=== PATIENT | female | born 1940 | race Caucasian/White ===

== ENCOUNTER 2016-07-04 04:15 | Emergency (ER) | payer MEDICARE, OTHER ==
[~2016-07-04] VITALS: Ht 154.9 cm; Wt 60.9 kg
[2016-07-04 04:20] VITALS: BP 171/72; TEMP 98.1
[2016-07-04] MEDS ORDERED: HYZAAR 50-12.1 UDTAB PO (04:26)
[2016-07-04] MEDS ORDERED: LIPITOR 10MG10 MG PO (04:26)
[2016-07-04] MEDS ORDERED: PERCOCET 325 MG1 TA2 PO (04:47)
[2016-07-04] MEDS ORDERED: ULTRAM 50MG TAB50 MG PO (04:47)
[2016-07-04 05:14] VITALS: PULSE 75
== END 2016-07-04 05:05 | disposition home or self-care (01) ==
LOC: COL.ER 04:15
DX: M25.551 Pain in right hip (principal); M54.31 Sciatica, right side; I12.9 Hypertensive chronic kidney disease with stage 1 through stage 4 chronic kidney disease, or unspecified chronic kidney disease; N18.9 Chronic kidney disease, unspecified
CPT/HCPCS: J1170; J8540

== ENCOUNTER 2016-07-14 04:37 | Emergency (ER) | payer MEDICARE, OTHER ==
[~2016-07-14] VITALS: Ht 154.9 cm; Wt 61.4 kg
[~2016-07-14 04:37] MED LIST: HYZAAR 50-12.1 UDTAB PO; LIPITOR 10MG10 MG PO; PERCOCET 325 MG1 TA2 PO; ULTRAM 50MG TAB50 MG PO
[2016-07-14] MEDS ORDERED: VALTREX1 GM PO (04:45)
[2016-07-14] MEDS ORDERED: NEURONTIN100 MG/CAP PO (04:46)
[2016-07-14] MEDS ORDERED: ZOFRAN 4MG T4 MG/TAB PO (04:46)
[2016-07-14 05:36] LABS: BASO # 0.1 (0.0-0.2); BASO % 0.7 % (0.0-2.0); EOS # 0.1 (0.0-0.7); EOS % 1.5 % (0-4.0); GRAN # 4.7 (1.4-6.5); GRAN % 57.8 % (42.2-75.2); LYMPH # 2.4 (1.2-3.4); LYMPH % 30.1 % (20.0-51.0); MEAN CELL VOLUME 95 fl (80.0-100.0); MEAN CORPUSCULAR HGB CONC 34 g/dl (33.0-37.0); MEAN PLATELET VOLUME 10.5 fl (7.4-10.4); MONO # 0.8 (0.1-0.6); MONO % 9.7 % (1.7-9.3); PLATELET COUNT 232 K/mm3 (130-400); RED BLOOD COUNT 3.61 M/mm3 (4.10-5.30); REDCELL DISTRIBUTION WIDTH-CV 11.8 % (11.5-14.5); WHITE BLOOD COUNT 8.1 K/mm3 (4.8-10.8)
[2016-07-14 05:39] LABS: HEMATOCRIT 34.1 % (37.0-47.0); HEMOGLOBIN 11.5 g/dl (12.5-16.0); MEAN CORPUSCULAR HEMOGLOBIN 32 pg (27.0-31.0)
[2016-07-14 06:02] LABS: PH 6 (5-8); SQUAMOUS EPITHELIAL None Seen /hpf; URINE APPEARANCE Clear; URINE BACTERIA Rare /hpf; URINE BILIRUBIN Negative (NEGATIVE); URINE BLOOD 1+ (NEGATIVE); URINE COLOR Yellow; URINE GLUCOSE Negative (NEGATIVE); URINE KETONE Negative (NEGATIVE); URINE UROBILINOGEN Negative (NEGATIVE)
[2016-07-14 06:13] LABS: ADJUSTED CALCIUM 10.2 mg/dL (8.4-10.2); ALANINE AMINOTRANSFERASE 27 U/L (9-52); ALBUMIN 3.9 gm/dL (3.5-5.0); ALKALINE PHOSPHATASE 66 U/L (50-136); ANION GAP 10 mmol/L (7-16); BILIRUBIN,TOTAL 1.3 mg/dL (0.0-1.0); BLOOD UREA NITROGEN 24 mg/dL (7-17); CALCIUM 10.1 mg/dL (8.4-10.2); CARBON DIOXIDE 30 mmol/L (22-30); CHLORIDE 94 mmol/L (98-107); CREATININE, serum 1.15 mg/dL (0.52-1.25); GLUCOSE 106 mg/dL (74-106); LIPASE 277 U/L (23-300); POTASSIUM 3.8 mmol/L (3.4-5.0); SODIUM 134 mmol/L (137-145); TOTAL PROTEIN 6.9 gm/dL (6.4-8.2)
[2016-07-14 06:21] LABS: C-REACTIVE PROTEIN < 0.5 mg/dL (0.0-0.9)
[2016-07-14] MEDS ORDERED: PRIL40 PO (07:28)
[2016-07-14] MEDS ORDERED: ZOFRAN8 MG PO (07:28)
[2016-07-14] MEDS ORDERED: PERCOCET 325 MG1 TA2 PO (07:28)
[2016-07-14 08:16] VITALS: BP 150/76; PULSE 58; TEMP 98.3
== END 2016-07-14 08:17 | disposition home or self-care (01) ==
LOC: COL.ER 04:37
PROVIDERS: Emergency Medicine
DX: R10.31 Right lower quadrant pain (principal); M25.551 Pain in right hip; M54.5 Low back pain; I10 Essential (primary) hypertension; B02.9 Zoster without complications; R11.0 Nausea
CPT/HCPCS: J2270; J2405; J7030; Q9967

== ENCOUNTER → 2017-11-10 | Outpatient (CLI) | payer MEDICARE, OTHER ==
[~2017-11-10] MED LIST changes: +NEURONTIN100 MG/CAP PO; +PRIL40 PO; +VALTREX1 GM PO; +ZOFRAN 4MG T4 MG/TAB PO; +ZOFRAN8 MG PO
== END ==
LOC: MC.RAD 10:40
DX: Z12.31 Encounter for screening mammogram for malignant neoplasm of breast (principal)

== ENCOUNTER → 2019-11-12 | Outpatient (CLI) | payer MEDICARE, OTHER | LOC: MC.RAD 11-11 13:15 | DX: Z12.31 Encounter for screening mammogram for malignant neoplasm of breast (principal); N63.20 Unspecified lump in the left breast, unspecified quadrant ==

== ENCOUNTER → 2019-11-19 | Outpatient (CLI) | payer MEDICARE, OTHER | LOC: MC.RAD 08:28 | DX: N63.20 Unspecified lump in the left breast, unspecified quadrant (principal) ==

== ENCOUNTER → 2020-06-29 | Outpatient (CLI) | payer MEDICARE, OTHER | LOC: MC.RAD 10:00 | DX: N63.20 Unspecified lump in the left breast, unspecified quadrant (principal) ==

== ENCOUNTER → 2020-11-17 | Outpatient (CLI) | payer MEDICARE, OTHER | LOC: MC.RAD 13:59 | DX: Z12.31 Encounter for screening mammogram for malignant neoplasm of breast (principal) ==

== ENCOUNTER 2021-03-31 09:22 | Emergency (ER) | payer MEDICARE, OTHER ==
[~2021-03-31] VITALS: Ht 154.9 cm; Wt 60.9 kg
[2021-03-31 09:35] VITALS: TEMP 97.2
[2021-03-31] MEDS ORDERED: MICARDIS40 MG PO (09:39)
[2021-03-31] MEDS ORDERED: HCTZ12.5TAB PO (09:40)
[2021-03-31] MEDS ORDERED: PRESERVISION1 SGL PO (09:41)
[2021-03-31] MEDS ORDERED: VITAMIN D250 MCG PO (09:41)
[2021-03-31 10:31] LABS: BASO % 0.2 % (0.0-2.0); EOS # 0.2 K/mm3 (0.0-0.7); EOS % 2.6 % (0.0-4.0); GRAN % 68.9 % (42.2-75.2); LYMPH # 1.5 K/mm3 (1.2-3.4); LYMPH % 17.6 % (20.0-51.0); MEAN CELL VOLUME 95 fl (80.0-100.0); MEAN CORPUSCULAR HEMOGLOBIN 32 pg (27-31); MEAN CORPUSCULAR HGB CONC 34 g/dl (33.0-37.0); MEAN PLATELET VOLUME 10.2 fl (7.4-10.4); MONO # 0.9 K/mm3 (0.1-0.6); MONO % 9.7 % (1.7-9.3); PLATELET COUNT 204 K/mm3 (130-400); RED BLOOD COUNT 3.72 M/mm3 (4.10-5.30); REDCELL DISTRIBUTION WIDTH-CV 12.6 % (11.5-14.5)
[2021-03-31 10:32] LABS: HEMATOCRIT 35.4 % (37.0-47.0)
[2021-03-31 10:36] LABS: ALBUMIN 2.9 gm/dL (3.4-4.8); BILIRUBIN,TOTAL 1.1 mg/dL (0.2-1.2); CALCIUM 9.2 mg/dL (8.4-10.2); CREATININE, serum 1.1 mg/dL (0.57-1.11); POTASSIUM 3.8 mmol/L (3.5-4.5)
[2021-03-31 12:00] VITALS: BP 116/95
[2021-03-31 12:30] VITALS: PULSE 62
== END 2021-03-31 12:45 | disposition home or self-care (01) ==
LOC: COL.ER 09:22
PROVIDERS: Family Medicine
DX: U07.1 COVID-19 (principal)
CPT/HCPCS: J7030; M0245

== ENCOUNTER → 2021-12-14 | Outpatient (CLI) | payer MEDICARE, OTHER ==
[~2021-12-14] MED LIST changes: +HCTZ12.5TAB PO; +MICARDIS40 MG PO; +PRESERVISION1 SGL PO; +VITAMIN D250 MCG PO
== END ==
LOC: MC.RAD 13:02
DX: Z12.31 Encounter for screening mammogram for malignant neoplasm of breast (principal)

== ENCOUNTER → 2023-12-11 | Outpatient (CLI) | payer MEDICARE | LOC: MC.RAD 07:02 | DX: Z12.31 Encounter for screening mammogram for malignant neoplasm of breast (principal) ==